=== PATIENT | female | born 1975 ===

== ENCOUNTER 2023-04-20 09:27 | Inpatient (IN) | payer OTHER ==
[~2023-04-20] VITALS: Ht 160 cm; Wt 86.2 kg
[2023-04-21] MEDS ORDERED: VENLAFAXINE HC150 M1 PO (10:49)
[2023-04-21] MEDS ORDERED: ESCITALOPRAM OX10 MG PO (10:49)
[2023-04-21] MEDS ORDERED: LITHOBID300 M1 PO (10:49)
[2023-04-21] MEDS ORDERED: CLONAZEPAM0.5 MG PO (10:49)
[2023-04-21] MEDS ORDERED: ZYPREXA2.5 MG PO (10:50)
[2023-04-21] MEDS ORDERED: ESTAZOLAM2 MG PO (10:50)
[2023-04-23] MEDS ORDERED: ESKALITH300 MG (13:08)
[2023-04-23] MEDS ORDERED: BUPROPION XL150 MG (13:08)
[2023-04-24] MEDS ORDERED: COLACE100 MG PO (08:23)
[2023-04-24] MEDS ORDERED: IBU800 MG PO (08:23)
[2023-04-24] MEDS ORDERED: SIMETHICONE80 MG PO (08:23)
[2023-04-24] MEDS ORDERED: PERCOCET 5-3251 EACH PO (08:23)
== END 2023-04-24 11:14 | disposition home or self-care (01) | DRG 743 ==
LOC: OB/GYN 04-23 07:23 → O/R 04-23 07:23 → OB/GYN 04-23 09:15
PROVIDERS: ADMIT Student in an Organized Health Care Education/Training Program; ATTEND Student in an Organized Health Care Education/Training Program
PROC: 0UT74ZZ Resection of Bilateral Fallopian Tubes, Percutaneous Endoscopic Approach (ICD-10-PCS; 2023-04-23)
PROC: 0UT24ZZ Resection of Bilateral Ovaries, Percutaneous Endoscopic Approach (ICD-10-PCS; 2023-04-23)
PROC: 0TJB8ZZ Inspection of Bladder, Via Natural or Artificial Opening Endoscopic (ICD-10-PCS; 2023-04-23)
PROC: 0UT94ZZ Resection of Uterus, Percutaneous Endoscopic Approach (ICD-10-PCS; principal; 2023-04-23 17:15)
DX: D25.2 Subserosal leiomyoma of uterus (principal); Z20.822 Contact with and (suspected) exposure to COVID-19; N80.03 Adenomyosis of the uterus